=== PATIENT | male | born 1970 | race Caucasian/White ===

== ENCOUNTER → 2023-05-15 | Outpatient (CLI) | payer BC ==
--- NOTE | 2023-05-15 21:48 | US ---
EXAMINATION TYPE: US abdomen limited DATE OF EXAM: 05/15/2023 COMPARISON: NONE CLINICAL INDICATION: Male, 52 years old with history of R19.09 OTHER INTRA-ABDOMINAL; Stanton size lum p RUQ TECHNIQUE: Grayscale and color Doppler imaging of the patient's area of concern. FINDINGS: scanned within patient's area of concern, RUQ, hyperechoic/isoechoic area = 2.7 x 2.2 x 3.8cm IMPRESSION: Soft tissue mass in the area of palpable abnormality. Findings could correlate to lipoma versus other etiologies such as desmoid tumor. Consider MRI imaging for complete evaluation.
== END | disposition home or self-care (01) ==
LOC: RADUSWWP 16:22
PROVIDERS: ATTEND Family Medicine
DX: R19.09 Other intra-abdominal and pelvic swelling, mass and lump (principal)
CPT/HCPCS: 76705